=== PATIENT | male | born 1990 | race Two or more races ===

== ENCOUNTER 2020-11-01 10:13 | Emergency (ER) | payer MEDICAID ==
[~2020-11-01] VITALS: Ht 170.2 cm; Wt 86.5 kg
[2020-11-01] MEDS ORDERED: ALBUTEROL/IPRATROPIUM 2.5MG/0.5MG, 3 ML ONE ×2 (11:15→12:02)
[2020-11-01] MEDS ORDERED: ALBUTEROL/IPRATROPIUM 2.5MG/0.5MG, 3 ML NPPB ONE (11:30)
[2020-11-01] MEDS: ALBUTEROL/IPRATROPIUM 2.5MG/0.5MG, 3 ML NPPB SCH ×2 (11:39→12:49)
--- NOTE | 2020-11-01 12:26 | NUR ---
PT BIB SELF VIA POV. PER PT "I NEED A BREATHING TREATMENT". PT STATES HE HAS HX OF ASTHMA AND THIS FEELS LIKE PREVIOUS EXACERBATIONS. PT REPORTS HE IS NOT COVID 19 VACCINATED. PT RESTING IN [facility], MONITORING IN PLACE, [place] AT THIS TIME, WCANDRA. PT MEDICATED PER EMAR. PT REFUSING LAB DRAW AT THIS TIME. EDMD AWARE.
[2020-11-01 12:35] VITALS: BP 125/74
[2020-11-01] MEDS ORDERED: ALBUTEROL HFA 90 MCG/SPRAY INH PRN (12:39)
== END 2020-11-01 12:51 | disposition home or self-care (01) ==
LOC: ED 12:30
DX: J45.901 Unspecified asthma with (acute) exacerbation (principal); R06.02 Shortness of breath
CPT/HCPCS: 71045; 93005; 94640